=== PATIENT | female | born 1995 | race Caucasian/White ===

== ENCOUNTER 2025-04-21 20:15 | Emergency (ER) | payer MEDICAID ==
[~2025-04-21] VITALS: Ht 154.9 cm; Wt 54.0 kg
[2025-04-21 20:33] VITALS: TEMP 36.6; O2SAT 99
[2025-04-21] MEDS: CLONIDINE 0.1MG TABLET PO SCH (21:22)
[2025-04-21] MEDS: ALPRAZOLAM 0.5 MG TABLET PO ONE (21:46)
[2025-04-21 21:53] LABS: TROPONIN I HIGH SENSITIVITY < 4 ng/L (3.0-34)
[2025-04-22 01:03] VITALS: BP 109/71; PULSE 51; RESP 13; O2SAT 100
== END 2025-04-22 01:23 | disposition home or self-care (01) ==
LOC: ER 20:15
DX: R07.89 Other chest pain (principal); I10 Essential (primary) hypertension; Z79.899 Other long term (current) drug therapy
CPT/HCPCS: 36415; 71045; 84484; 99285